=== PATIENT | female | born 1935 | race Caucasian/White ===

== ENCOUNTER → 2017-08-10 | Outpatient (CLI) | payer MEDICARE ==
[~2017-08-10] MED LIST: BIOTCAP PO; CALC1TAB12 PO; DHA100CA PO; ECASA81 PO; FIBE500T PO; LEVO25TA4 PO; METO1TAB9 PO; RALO1TAB PO; SACC1CAP3 PO; VITA2000 PO; VITA250T3 PO; ZINC50TA2 PO; ZOCO20TA PO
[2017-08-10 10:04] LABS: APTT (PATIENT) 22.2 SEC (24.3-30.1); INTERNATIONAL NORMALIZED RATIO 0.9 RATIO; PROTHROMBIN TIME - PATIENT 9.6 SEC (9.8-11.6)
[2017-08-10 10:07] LABS: BACTERIA, URINE RARE /hpf; BLOOD, URINE NEG (NEG); COMMENT (UR) CULTURE INDICATED; CULTURE IF INDICATED CULTURE INDICATED; GLUCOSE,URINE NEG (NEG); HYALINE CAST, URINE 3 /lpf (RARE); KETONE, URINE NEG (NEG); MUCUS URINE FEW /lpf (OCC); NITRITE,URINE NEG (NEG); SQUAMOUS EPITHELIAL CELL URINE 3 /hpf (0-5); URINE COLOR YELLOW (YELLW/STRAW)
[2017-08-10 10:07] LABS: AUTOMATED NEUTROPHIL # 7.4 TH/MM3 (1.8-7.7); BASOPHIL # 0.1 TH/MM3 (0-0.2); BASOPHIL % 0.5 % (0.0-2.0); EOSINOPHIL # 0.2 TH/MM3 (0-0.4); EOSINOPHIL % 1.6 % (0.0-4.0); HEMATOCRIT 45.3 % (35.0-46.0); HEMO FLAGS DIFF FINAL; LYMPH % 22.5 % (9.0-44.0); LYMPHOCYTE # 2.4 TH/MM3 (1.0-4.8); MEAN CELL VOLUME 91.5 FL (80.0-100.0); MEAN CORPUSCULAR HEMOGLOBIN 29.4 PG (27.0-34.0); MEAN CORPUSCULAR HGB CONC 32.1 % (32.0-36.0); MONO % 5.3 % (0.0-8.0); NEUT % 70.1 % (16.0-70.0); PLATELET COUNT 214 TH/MM3 (150-450); RED BLOOD COUNT 4.95 MIL/MM3 (4.00-5.30); RED CELL DISTRIBUTION WIDTH 15.1 % (11.6-17.2); WHITE BLOOD COUNT 10.6 TH/MM3 (4.0-11.0)
--- NOTE | 2017-08-10 10:09 | RADRPT ---
EXAM DATE/TIME: 08/10/2017 09:53 [place] COMPARISON: No previous studies available for comparison. INDICATIONS : Evaluate for pneumonia, pneumothorax or communicable disease. Preop chest for colon surgery on , short of breath MEDICAL HISTORY : Myocardial infarction. SURGICAL HISTORY : Coronary artery stent. ENCOUNTER: Initial ACUITY: 1 day PAIN SCORE: 0/10 LOCATION: Bilateral chest FINDINGS: Moderate hyperinflation. The lungs are clear. The cardiomediastinal contours are unremarkable. Oss eous structures are intact. CONCLUSION: Hyperinflation otherwise negative. Wilberto Morales MD FACR on August 10, 2017 at 10:07 Board Certified Radiologist. This report was verified electronically.
[2017-08-10 10:21] LABS: ALT (GPT) 31 U/L (10-53); ANION GAP 8 MEQ/L (5-15); AST (GOT) 18 U/L (15-37); BICARBONATE 26.8 MEQ/L (21.0-32.0); BLOOD UREA NITROGEN 21 MG/DL (7-18); CHLORIDE 109 MEQ/L (98-107); GLOMERULAR FILTRATION RATE 58 ML/MIN (>89); GLUCOSE,FASTING 99 MG/DL (74-99); POTASSIUM 4.3 MEQ/L (3.5-5.1); SODIUM (NA) 144 MEQ/L (136-145)
[2017-08-10 10:23] LABS: ALKALINE PHOSPHATASE 75 U/L (45-117); TOTAL BILIRUBIN ADULT 0.3 MG/DL (0.2-1.0)
--- NOTE | 2017-08-10 22:30 | EKG ---
Date Performed: 08/10/2017 Time Performed: 09:07:22 PTAGE: 82 years EKG: Sinus rhythm MARKED RIGHT AXIS DEVIATION RIGHT BUNDLE BRANCH BLOCK ABNORMAL R WAVE PROGRESSION NO PREVIOUS TRACING DOCTOR: Kimberly Lafleur Interpretating Date/Time 08/10/2017 22:28:33
== END ==
LOC: CPRE 08:43
PROVIDERS: ATTEND Colon & Rectal Surgery
DX: Z01.812 Encounter for preprocedural laboratory examination (principal); Z01.811 Encounter for preprocedural respiratory examination; Z01.810 Encounter for preprocedural cardiovascular examination; D12.4 Benign neoplasm of descending colon; I45.10 Unspecified right bundle-branch block; R82.99 Other abnormal findings in urine
CPT/HCPCS: 36415; 71020; 80053; 81001; 82378; 85025; 85610; 85730; 87086; 93005

== ENCOUNTER 2017-08-20 08:30 | Inpatient (IN) | payer MEDICARE ==
[~2017-08-20] VITALS: Ht 149.9 cm; Wt 104.9 kg
[2017-09-24] VITALS (9 sets, daily range): BP systolic 111–125; BP diastolic 57–60; PULSE 68–82; RESP 16–22; TEMP 98–98.5; O2SAT 93–96
[2017-09-24] MEDS ORDERED: SODIUM CHLORID 0.9% 500 ML IV PRN (06:15)
[2017-09-24] MEDS ORDERED: DEXT 5%-NACL 0.9% 1000 ML INJ 1,000 ML IV SCH (06:15)
[2017-09-24] MEDS ORDERED: METRONIDAZOLE 500 MG/100 ML ISONTONIC SOLN IV PRN (06:15)
[2017-09-24] MEDS ORDERED: POVIDONE IODINE 5% (ANTISEPSIS KIT) 4 APPLICATIONS EACH NARE PRN (06:15)
[2017-09-24] MEDS ORDERED: CHLORHEXIDINE GLUCONATE 2 % 1 PACK (2 CLOTHS) TOPICAL PRN (06:15)
[2017-09-24] MEDS ORDERED: LACTATED RINGER'S 1000 ML IV PRN (06:15)
[2017-09-24] MEDS ORDERED: METOPROLOL TARTRATE 25 MG TAB PO PRN (06:15)
[2017-09-24] MEDS ORDERED: HYDROmorphone HCL PF 2 MG/ML VIAL ONE (06:40)
[2017-09-24] MEDS ORDERED: ACETAMINOPHEN 1000 MG/100 ML 100 ML IV ONE (06:40)
[2017-09-24] MEDS ORDERED: KRIL1CAP9 PO (06:44)
[2017-09-24] MEDS: ceFAZolin 2 GM PREMIX 50 ML IV SCH ×2 (10:04→10:05)
--- NOTE | 2017-09-24 11:02 | PD.OP ---
Operative Report Date of Surgery: Sep 24, 2017 Preoperative Diagnosis: Colon cancer Postoperative Diagnosis: Same Procedure: Cystoscopy with bilateral ureteral catheter insertion Anesthesia: ROSIO Surgeon: Mike De Souza Circus Agent(s): None Resident Surgeon: None Operation and Findings: 82-year-old female with history of colon cancer elected to undergo robotic colectomy by Dr. Chandler. Request for made for bilateral ureteral catheter placement. The patient was placed in the dorsal lithotomy position, prepped and draped in usual sterile fashion, received preprocedure buttocks Gen. endotracheal tube anesthesia was administered. 22 Dominican scope was inserted in the bladder alfredo cystoscopy did not reveal any abnormalities. The left ureteral orifice was identified and a 5 Dominican opening catheter was inserted in the left ureteral orifice of difficulty. This was repeated on the right side. 16F Schaffer was inserted into the bladder and the catheters were attached the Schaffer. She tolerated the procedure well. Mike De Souza DO Sep 24, 2017 11:02
[2017-09-24] MEDS ORDERED: LACTATED RINGER'S 1000 ML INJ 2,000 ML IV ONE (12:00)
[2017-09-24] MEDS ORDERED: DEXAMETHASONE SOD PHOS 4 MG/ML VIAL IV ONE (12:00)
[2017-09-24] MEDS ORDERED: PROPOFOL 200 MG/20 ML AMP IV ONE (12:00)
[2017-09-24] MEDS ORDERED: LIDOCAINE HCL 1% PF 5 ML SYRINGE OTHER ONE (12:00)
[2017-09-24] MEDS ORDERED: ROCURONIUM INJ 50 MG/5 ML SYRINGE IV PUSH ONE (12:00)
[2017-09-24] MEDS ORDERED: ePHEDrine/NS 25 MG/5 ML SYRINGE IV ONE (12:00)
[2017-09-24] MEDS ORDERED: PHENYLEPH/NS 1000 MCG/10 ML SYR IV ONE (12:00)
[2017-09-24] MEDS ORDERED: ceFAZolin INJ 1,000 MG VIAL IV ONE (12:00)
[2017-09-24] MEDS ORDERED: ONDANSETRON HCL 4 MG/2 ML VIAL IV PUSH ONE (12:00)
[2017-09-24] MEDS ORDERED: *ENALAPRILAT 1.25 MG/ML VIAL PERIprocedural Use ONLY ONE ×2 (13:57→14:38)
[2017-09-24 14:00] LABS: AUTOMATED NEUTROPHIL # 14.6 TH/MM3 (1.8-7.7); BASOPHIL # 0.1 TH/MM3 (0-0.2); BASOPHIL % 0.3 % (0.0-2.0); EOSINOPHIL % 0.2 % (0.0-4.0); HEMATOCRIT 41.4 % (35.0-46.0); HEMOGLOBIN 13.4 GM/DL (11.6-15.3); LYMPH % 7.5 % (9.0-44.0); LYMPHOCYTE # 1.2 TH/MM3 (1.0-4.8); MEAN CELL VOLUME 90.5 FL (80.0-100.0); MEAN CORPUSCULAR HEMOGLOBIN 29.3 PG (27.0-34.0); MEAN CORPUSCULAR HGB CONC 32.4 % (32.0-36.0); MONO % 2.5 % (0.0-8.0); MONOCYTE # 0.4 TH/MM3 (0-0.9); NEUT % 89.5 % (16.0-70.0); PLATELET COUNT 201 TH/MM3 (150-450); RED BLOOD COUNT 4.57 MIL/MM3 (4.00-5.30); WHITE BLOOD COUNT 16.4 TH/MM3 (4.0-11.0)
[2017-09-24] MEDS ORDERED: POTASSIUM CHLOR 40 MEQ PREMIX 100 ML IV PRN (14:00)
[2017-09-24] MEDS ORDERED: ACETAMINOPHEN/HYDROcodone 325 MG/5 MG TAB PO PRN ×2 (14:00)
[2017-09-24] MEDS ORDERED: Post-op Orders (for Pharmacy) XX ONE (14:00)
[2017-09-24] MEDS ORDERED: NALOXONE HCL 0.4 MG/ML AMP IV PUSH PRN (14:00)
[2017-09-24] MEDS ORDERED: POTASSIUM CHLOR 20 MEQ PREMIX 100 ML IV PRN (14:00)
[2017-09-24] MEDS ORDERED: BENZOCAINE 6 MG/MENTHOL 10 MG LOZENGE BUCCAL PRN (14:00)
[2017-09-24] MEDS ORDERED: ACETAMINOPHEN 325 MG TAB PO PRN (14:00)
[2017-09-24] MEDS ORDERED: ONDANSETRON HCL 4 MG/2 ML VIAL IV PUSH PRN (14:00)
[2017-09-24] MEDS ORDERED: diphenhydrAMINE HCL 50 MG/ML VIAL IV PUSH PRN (14:00)
[2017-09-24] MEDS ORDERED: MORPHINE SULFATE 30 MG/30 ML PCA IV SCH (14:00)
[2017-09-24] MEDS: D5-NS + KCL 20 MEQ INJ 1,000 ML IV SCH ×2 (14:12→21:39)
[2017-09-24 14:16] LABS: BICARBONATE 26.4 MEQ/L (21.0-32.0); CALCIUM 7.9 MG/DL (8.5-10.1); CREATININE 0.87 MG/DL (0.50-1.00)
[2017-09-24] MEDS ORDERED: DO NOT ADM ANY ANTICOAGULANT DRUGS PRN (14:30)
[2017-09-24] MEDS: KETOROLAC TROMETHAMINE 30 MG/ML (IVP) VIAL IVP SCH ×2 (15:00→19:42)
[2017-09-24] MEDS: metroNIDAZOLE 500 MG INJ 100 ML IV SCH (18:00)
[2017-09-24] MEDS: METOPROLOL SUCCINATE 50 MG EXTENDED RELEASE TAB PO SCH (19:59)
[2017-09-24] MEDS: PCA - TOTAL MG MORPHINE DELIVERED PER SHIFT SCH (22:00)
[2017-09-25] VITALS (27 sets, daily range): BP systolic 140–170; BP diastolic 60–74; PULSE 56–74; RESP 16–18; TEMP 97.4–98.1; O2SAT 91–95
[2017-09-25] MEDS: KETOROLAC TROMETHAMINE 30 MG/ML (IVP) VIAL IVP SCH ×4 (01:02→20:59)
[2017-09-25] MEDS: metroNIDAZOLE 500 MG INJ 100 ML IV SCH ×2 (01:04→08:27)
[2017-09-25 05:11] LABS: AUTOMATED NEUTROPHIL # 10.4 TH/MM3 (1.8-7.7); BASOPHIL % 0.3 % (0.0-2.0); HEMATOCRIT 39.7 % (35.0-46.0); HEMOGLOBIN 12.8 GM/DL (11.6-15.3); LYMPH % 9.5 % (9.0-44.0); LYMPHOCYTE # 1.2 TH/MM3 (1.0-4.8); MEAN CELL VOLUME 91.6 FL (80.0-100.0); MEAN CORPUSCULAR HEMOGLOBIN 29.5 PG (27.0-34.0); MEAN CORPUSCULAR HGB CONC 32.2 % (32.0-36.0); MONO % 5.9 % (0.0-8.0); MONOCYTE # 0.7 TH/MM3 (0-0.9); NEUT % 84.3 % (16.0-70.0); PLATELET COUNT 198 TH/MM3 (150-450); RED BLOOD COUNT 4.34 MIL/MM3 (4.00-5.30); RED CELL DISTRIBUTION WIDTH 15.3 % (11.6-17.2); WHITE BLOOD COUNT 12.4 TH/MM3 (4.0-11.0)
[2017-09-25] MEDS: D5-NS + KCL 20 MEQ INJ 1,000 ML IV SCH ×3 (05:26→16:44)
[2017-09-25] MEDS: LEVOTHYROXINE SODIUM 25 MCG TAB PO SCH (05:26)
[2017-09-25] MEDS: HEPARIN SODIUM - SQ 10,000 UNITS/ML VIAL SQ SCH ×2 (05:26→17:41)
[2017-09-25] MEDS: PCA - TOTAL MG MORPHINE DELIVERED PER SHIFT SCH ×3 (05:27→22:00)
[2017-09-25 05:48] LABS: BICARBONATE 25.4 MEQ/L (21.0-32.0); CALCIUM 7.4 MG/DL (8.5-10.1); CREATININE 0.92 MG/DL (0.50-1.00)
[2017-09-25 06:00] LABS: CALCIUM-PROTEIN CORRECTED 8.1 MG/DL (8.5-10.1); TOTAL PROTEIN 5.9 GM/DL (6.4-8.2)
[2017-09-25] MEDS: METOPROLOL SUCCINATE 50 MG EXTENDED RELEASE TAB PO SCH ×2 (08:24→20:59)
[2017-09-25] MEDS: PANTOPRAZOLE SODIUM 40 MG VIAL IVP SCH (08:25)
[2017-09-25] MEDS: ENALAPRILAT 1.25 MG/ML VIAL IV PUSH PRN (11:31)
--- NOTE | 2017-09-25 20:20 | MP ---
cc: ABELARDO CHANDLER M.D., MINA M.D. DATE OF SURGERY: 09/25/2017. PREOPERATIVE DIAGNOSIS: Distal transverse colon polyp. POSTOPERATIVE DIAGNOSIS: Distal transverse colon polyp. OPERATIVE PROCEDURE PERFORMED: 1. Robotic descending colectomy. 2. Extensive lysis of adhesions. 3. Take-down of the splenic flexure. SURGEON: Abelardo Chandler M.D. ANESTHESIA General per ET tube. ESTIMATED BLOOD LOSS: Estimated blood loss was less than 100 mL OPERATIVE INDICATIONS: The patient is an 82-year-old female with a sessile polyp in the distal transverse colon which was unable to be removed via the colonoscope. OPERATIVE FINDINGS: There was a 1.5 to 2 cm sessile polyp in the distal transverse colon which appears benign. DESCRIPTION OF THE PROCEDURE IN DETAIL: The patient was brought to the operating room and placed in the position. After induction of general anesthesia, the patient was placed in Abdifatah stirrups and all bony prominences were carefully padded. The skin of the anterior abdominal wall as well as the perineal area was then prepped and draped in the usual sterile fashion. Dr. De Souza then came in and performed cystoscopy with placement of bilateral ureteral catheters. Please see his operative note for details. A site was then chosen for the camera being located just to the right and above the umbilicus. A 10/12 trocar was placed at this site under direct vision using the laparoscope. A brief abdominal survey was then performed and the patient was noted to have some adhesions to the anterior abdominal wall as well as the omentum, both of the umbilical area and in the left upper quadrant. The #1 trocar was then placed just under the right costal margin and to the right of the midclavicular line. This was a long da Alan 8 port and the assist port was placed in the right lower quadrant equidistant from the camera and the #1 port being sure being sure that we had adequate separate to operate in the left upper quadrant. The adhesions to the anterior abdominal wall were then carefully dissected free with electrocautery and additional adhesions to the left abdominal sidewall were also dissected free using electrocautery. At this point, the other two port sites were placed. The #2 port was placed just below the umbilicus in the left midclavicular line and the #3 port was placed just inside the left anterior axillary line about the level of the umbilicus. The patient was hydroplaned with the head down and just slightly to the right and the omentum was brought up and over the transverse colon. Additional adhesions of omentum to the splenic flexure were dissected free throughout the remainder of the case and the distal transverse colon and the proximal descending colon were also dissected free using electrocautery during the case. The robot was then docked. The omentum was pulled away from the transverse colon and dissection was continued in this plane until the lesser sac was entered. Dissection continued freeing the omentum up to the level but not around the splenic flexure as she had quite a bit of adhesions up and over the splenic flexure and down to the proximal descending colon. These were carefully and painstakingly dissected free using electrocautery until eventually we had full separation of the omentum from the transverse colon. At this point the interloop adhesions between the distal transverse and the proximal descending colon were then dissected free using electrocautery as well. The descending colon was retracted medially and the lateral peritoneal attachments were dissected free carefully freeing the descending colon mesentery from Gerota's fascia posteriorly. This dissection continued up and around the splenic flexure finally freeing the splenic flexure and continuing this over to the midpoint. At this point, the colon was retracted anteriorly and it was noted that the jejunum was adherent to the transverse colon mesentery. This was carefully dissected free using electrocautery until we had full mobility. A site was then chosen for division of the descending colon approximately midway along its length. A window was made in the mesentery and the this was opened using electrocautery. Th harmonic scalpel was then brought onto the field and the mesentery to the proximal descending colon and distal transverse colon was divided using the harmonic scalpel starting distally and proceeding proximally to just to the left of the middle colic vessels. At this point we had nice mobility of the bowel and after testing, the mid transverse colon came down nicely to meet the distal descending colon and lay in a nice orientation. All dissection beds were examined with no sign of any significant bleeding and the robot was undocked. A site was chosen for incision three to four fingerbreadths below the left costal margin. A 10 cm incision was made transversely at this location and using electrocautery dissection was carried down the fascia anterior to the abdominal wall. The fascia was then split as were a few of the fibers of the external oblique and the posterior fascia was then divided as well. A wound protector was then placed and the splenic flexure was then gently and carefully pulled out through the incision until we had full mobility of the bowel. The proximal division site just distal to the middle colic was then cleared of its mesentery circumferentially and a blue load of the SHERMAN stapler was placed across about this level. The remaining mesentery was divided and ligated using #0 Vicryl ties. A site was chosen for the distal division just in the mid descending colon region. The bowel was divided with a blue load SHERMAN stapler and the mesentery was divided and ligated using #0 Vicryl ties. The antimesenteric corners of the staple line were then brought together and removed sharply. One limb of the gastrointestinal stapler was placed down each limb of the bowel. This was closed along the antimesenteric border, fired and removed thus creating an entero- enterotomy. The resulting enterotomy was closed transversely using the TX 60 stapling device. A simple stay suture was placed in the distal end of the anastomosis using 3-0 Vicryl. The anastomosis was palpated and found to be widely patent and lay without tension. It was then gently reduced back into the peritoneal cavity and lay nicely without any further tension. The omentum was brought down to lay over the anterior surface of the anastomosis. There was one small bleeder in the muscle layer of the abdominal wall which was controlled using electrocautery. The posterior fascia of the anterior abdominal wall was closed in running fashion using #1 PDS and the anterior fascia was closed in running fashion using #1 PDS. The wound was copiously irrigated with warm normal saline and the skin was closed in a running subcu fashion using 3-0 Vicryl. CO2 insufflation was resumed and laparoscope was brought onto the field and there was no sign of any significant bleeding in the peritoneal cavity and the 10/12 trocar sites at the umbilical camera site fascia was closed using the crossbow device and 0 Vicryl suture. The air desufflated to the extent possible. The fascial suture was then secured. All trocars were removed. The trocar sites were copiously irrigated with warm normal saline and the trocar sites were closed in interrupted subcuticular fashion using 3-0 Vicryl. Steri-Strips and sterile dressings were then applied. All sponge, needle and instrument counts were correct and the patient was returned to the post anesthesia care unit in stable condition. MD JENNIFER Field/CARLOS /1:12 PM /7:57 PM
[2017-09-26] VITALS (10 sets, daily range): BP systolic 156–186; BP diastolic 66–75; PULSE 60–75; RESP 18; TEMP 97.4–98.4; O2SAT 92–96
[2017-09-26] MEDS: D5-NS + KCL 20 MEQ INJ 1,000 ML IV SCH ×3 (00:50→16:28)
[2017-09-26] MEDS: KETOROLAC TROMETHAMINE 30 MG/ML (IVP) VIAL IVP SCH ×4 (02:00→20:44)
[2017-09-26 05:29] LABS: AUTOMATED NEUTROPHIL # 7.6 TH/MM3 (1.8-7.7); BASOPHIL # 0.1 TH/MM3 (0-0.2); BASOPHIL % 0.6 % (0.0-2.0); EOSINOPHIL # 0.1 TH/MM3 (0-0.4); EOSINOPHIL % 1.4 % (0.0-4.0); HEMOGLOBIN 13.2 GM/DL (11.6-15.3); LYMPH % 18.7 % (9.0-44.0); MEAN CELL VOLUME 92.8 FL (80.0-100.0); MEAN CORPUSCULAR HEMOGLOBIN 30.6 PG (27.0-34.0); MEAN CORPUSCULAR HGB CONC 32.9 % (32.0-36.0); MEAN PLATELET VOLUME 10.4 FL (7.0-11.0); MONO % 6.7 % (0.0-8.0); MONOCYTE # 0.7 TH/MM3 (0-0.9); NEUT % 72.6 % (16.0-70.0); PLATELET COUNT 173 TH/MM3 (150-450); RED BLOOD COUNT 4.31 MIL/MM3 (4.00-5.30); WHITE BLOOD COUNT 10.4 TH/MM3 (4.0-11.0)
[2017-09-26 05:33] LABS: BICARBONATE 23.7 MEQ/L (21.0-32.0); CALCIUM 7.6 MG/DL (8.5-10.1); CREATININE 0.89 MG/DL (0.50-1.00)
[2017-09-26] MEDS: LEVOTHYROXINE SODIUM 25 MCG TAB PO SCH (05:58)
[2017-09-26] MEDS: HEPARIN SODIUM - SQ 10,000 UNITS/ML VIAL SQ SCH ×2 (05:58→16:28)
[2017-09-26] MEDS: PCA - TOTAL MG MORPHINE DELIVERED PER SHIFT SCH ×3 (05:58→22:00)
[2017-09-26] MEDS: METOPROLOL SUCCINATE 50 MG EXTENDED RELEASE TAB PO SCH ×2 (08:43→20:44)
[2017-09-26] MEDS: PANTOPRAZOLE SODIUM 40 MG VIAL IVP SCH (08:43)
--- NOTE | 2017-09-26 11:39 | HHI.PR ---
Subjective Remarks Pt seen yesterday. Missed note. Diet advanced yesterday and lyn and Ureteral cath removed yesterday. No N or V. Small BM. Objective Vital Signs Date Time Temp Pulse Resp B/P (MAP) Pulse Ox O2 Delivery O2 Flow Rate FiO2 09/26/17 11:30 97.4 61 18 170/71 (104) 96 09/26/17 11:04 93 Nasal Cannula 1.00 09/26/17 07:46 94 Nasal Cannula 1.00 09/26/17 07:42 97.5 62 18 175/70 (105) 93 09/26/17 05:58 16 09/26/17 03:24 98.1 60 18 164/67 (99) 92 09/26/17 03:23 92 Nasal Cannula 1.00 09/25/17 23:26 91 Nasal Cannula 1.00 09/25/17 23:19 98.0 60 18 144/68 (93) 91 09/25/17 22:00 16 09/25/17 20:20 91 Nasal Cannula 1.00 09/25/17 20:20 97.9 61 18 163/70 (101) 91 09/25/17 20:00 91 Nasal Cannula 1.00 09/25/17 18:00 73 09/25/17 17:00 64 09/25/17 16:00 62 09/25/17 15:25 94 Nasal Cannula 1.00 09/25/17 15:25 98.0 61 18 140/60 (86) 94 09/25/17 15:00 56 09/25/17 14:00 60 09/25/17 13:47 16 09/25/17 13:00 68 09/25/17 12:00 71 09/25/17 11:41 152/68 (96) I/O 09/25/17 09/25/17 09/25/17 09/26/17 09/26/17 09/26/17 07:00 15:00 23:00 07:00 15:00 23:00 Intake Total 2348 ml 920 ml 480 ml Output Total 375 ml 1050 ml 1400 ml Balance 1973 ml -130 ml -920 ml Intake Oral 480 ml 920 ml 480 ml IV Total 1868 ml Output Urine Total 375 ml 1050 ml 1400 ml # Bowel Movements 0 Result Diagram: 09/26/17 0400 09/26/17 0400 Objective Remarks VS-S Abd: obese,soft,non tender,dressing removed. Wound clean. Assessment and Plan Assessment and Plan Stable POD#2 Regular diet. Ambulate more. D/C in AM Timoteo Wagner MD Sep 26, 2017 11:39
[2017-09-26] MEDS: ENALAPRILAT 1.25 MG/ML VIAL IV PUSH PRN ×3 (12:02→23:54)
[2017-09-26] MEDS: ENALAPRILAT 2.5 MG/2 ML VIAL IV PUSH PRN (16:28)
[2017-09-27] MEDS: D5-NS + KCL 20 MEQ INJ 1,000 ML IV SCH ×2 (00:50→08:50)
[2017-09-27] MEDS: KETOROLAC TROMETHAMINE 30 MG/ML (IVP) VIAL IVP SCH ×2 (02:00→08:50)
[2017-09-27 04:00] VITALS: BP 191/78; PULSE 77; RESP 18; TEMP 98.4; O2SAT 94
[2017-09-27] MEDS: LEVOTHYROXINE SODIUM 25 MCG TAB PO SCH (05:04)
[2017-09-27] MEDS: HEPARIN SODIUM - SQ 10,000 UNITS/ML VIAL SQ SCH (05:04)
[2017-09-27] MEDS: PCA - TOTAL MG MORPHINE DELIVERED PER SHIFT SCH ×2 (06:00→14:00)
[2017-09-27 07:25] VITALS: BP 216/82; PULSE 74
[2017-09-27] MEDS: ENALAPRILAT 2.5 MG/2 ML VIAL IV PUSH PRN ×2 (07:35→11:49)
[2017-09-27] MEDS: PANTOPRAZOLE SODIUM 40 MG VIAL IVP SCH (08:49)
[2017-09-27] MEDS: METOPROLOL SUCCINATE 50 MG EXTENDED RELEASE TAB PO SCH (08:50)
[2017-09-27 11:00] VITALS: BP 201/80; PULSE 69; RESP 16; TEMP 98.4; O2SAT 96
--- NOTE | 2017-09-27 13:54 | HHI.PR ---
Subjective Remarks POD#3 s/p robotic descending colectomy comfortable, wants to go home Objective Vital Signs Date Time Temp Pulse Resp B/P (MAP) Pulse Ox O2 Delivery O2 Flow Rate FiO2 09/27/17 11:00 Room Air 09/27/17 11:00 98.4 69 16 201/80 (120) 96 09/27/17 10:08 18 09/27/17 08:04 Nasal Cannula 0.50 09/27/17 07:25 74 216/82 (126) 09/27/17 07:00 Room Air 09/27/17 04:00 98.4 77 18 191/78 (115) 94 09/27/17 03:35 94 Nasal Cannula 1.00 09/27/17 00:00 94 Nasal Cannula 1.00 09/26/17 23:30 98.2 73 18 186/75 (112) 93 09/26/17 20:34 98.2 75 18 181/72 (108) 94 09/26/17 20:03 93 Nasal Cannula 1.00 09/26/17 20:00 94 Nasal Cannula 1.00 09/26/17 18:07 156/66 (96) 09/26/17 15:28 98.4 68 18 167/72 (103) 96 09/26/17 15:01 94 Nasal Cannula 1.00 09/26/17 14:00 18 I/O 09/26/17 09/26/17 09/26/17 09/27/17 09/27/17 09/27/17 06:59 14:59 22:59 06:59 14:59 22:59 Intake Total 480 ml 840 ml 240 ml Output Total 1400 ml 100 ml Balance -920 ml 840 ml 140 ml Intake Oral 480 ml 840 ml 240 ml Output Urine Total 1400 ml Stool Total 100 ml # Voids 4 # Bowel Movements 1 Result Diagram: 09/26/17 0400 09/26/17 0400 Objective Remarks Abdomen soft, nontender Wounds clean Assessment and Plan Assessment and Plan Doing well Home today Followup 3 weeks. Franny Chandler MD Sep 27, 2017 13:53
[2017-09-27] MEDS ORDERED: HYDR-3516 PO (13:57)
[2017-09-27 14:00] VITALS: RESP 16
--- NOTE | 2017-09-30 09:11 | MD ---
cc: ABELARDO ALVAREZ M.D. ADMISSION DATE: 09/24/2017 DISCHARGE DATE: 09/27/2017 ADMISSION DIAGNOSIS Distal transverse colon polyp. DISCHARGE DIAGNOSIS Distal transverse colon polyp. PROCEDURES 1. Cystoscopy with placement of bilateral ureteral catheters. 2. Robotic descending colectomy. 3. Extensive lysis of adhesions. 4. Takedown of splenic flexure. HOSPITAL COURSE The patient is a 82-year-old female with a sessile polyp in the distal transverse colon which was unable to be removed via the colonoscope. After an outpatient bowel prep, she was taken to the operating room on 09/25/2017 where she underwent the above-named procedures. Postoperatively she did well with rapid return of bowel and bladder function. She was discharged to home with instructions to follow up with myself in the office. Final pathology was not available at the time of discharge. MD JENNIFER Field/TLL /1:54 PM /9:03 AM
== END 2017-09-27 17:30 | disposition home or self-care (01) | DRG 331 ==
LOC: EDUNIT# 08:30 → HSDI 09-24 05:31 → HCPC 09-24 18:30
PROVIDERS: ADMIT Colon & Rectal Surgery; ATTEND Colon & Rectal Surgery
PROC: 0T788DZ Dilation of Bilateral Ureters with Intraluminal Device, Via Natural or Artificial Opening Endoscopic (ICD-10-PCS; 2017-09-24)
PROC: 0DBM0ZZ Excision of Descending Colon, Open Approach (ICD-10-PCS; principal; 2017-09-24 08:46)
PROC: 0DBL0ZZ Excision of Transverse Colon, Open Approach (ICD-10-PCS; 2017-09-24 08:46)
PROC: 0DNM4ZZ Release Descending Colon, Percutaneous Endoscopic Approach (ICD-10-PCS; 2017-09-25)
PROC: 0DNL4ZZ Release Transverse Colon, Percutaneous Endoscopic Approach (ICD-10-PCS; 2017-09-25)
PROC: 0DNA4ZZ Release Jejunum, Percutaneous Endoscopic Approach (ICD-10-PCS; 2017-09-25)
PROC: 8E0W4CZ Robotic Assisted Procedure of Trunk Region, Percutaneous Endoscopic Approach (ICD-10-PCS; 2017-09-25)
DX: D12.3 Benign neoplasm of transverse colon (principal); I10 Essential (primary) hypertension; I25.2 Old myocardial infarction; G47.30 Sleep apnea, unspecified
CPT/HCPCS: 80048; 84155; 85025; 86850; 86900; 86901; 88307; 88309; 94150; C9113; J0131; J0690; J1100; J1170; J1644; J1885; J2270; J2370; J2405; J3010; J3480; J7120